=== PATIENT | female | born 2000 | race Caucasian/White ===

== ENCOUNTER 2021-01-30 19:27 | Emergency (ER) | payer BC ==
--- NOTE | 2021-01-30 20:38 | EDM.PDOC ---
ED HPI GENERAL MEDICAL PROBLEM - General Chief Complaint: Abdominal Pain Stated Complaint: UPPER ABDOMEN AND L SIDE CHEST Time Seen by Provider: 01/30/21 19:51 Source of Information: Reports: Patient History Limitations: Reports: No Limitations - History of Present Illness INITIAL COMMENTS - FREE TEXT/NARRATIVE: 20-year-old female presents the emergency department today with complaints of upper abdominal tightness. She states that about 130 this afternoon she ate a taco in a bag and a couple of funnel cakes. She states that the funnel cakes were pretty greasy. She states about an hour later she developed pressure in her epigastric area and up into her throat. She states that she does have newly diagnosed anxiety and did try to get herself to relax. She took a shower. She went to drive around. She states that eventually the pressure in her chest resolved and now she feels as though she is got a belt wrapped around her upper abdomen area. She states she is otherwise healthy. She denies any fever, chills, nausea, vomiting or diarrhea associated with the abdominal/chest pressure. Upper Abdomen Pain Score (Numeric/FACES): 6 - Related Data Allergies Allergy/AdvReac Type Severity Reaction Status Date / Time No Known Allergies Allergy Verified 01/30/21 19:56 Home Meds: Home Meds Escitalopram Oxalate [Lexapro] 10 mg PO DAILY 01/30/21 [History] Loratadine [Claritin] 10 mg PO DAILY 01/30/21 [History] Past Medical History Other Cardiovascular History: occasional PVC'S Respiratory History: Reports: Other (See Below) Other Respiratory History: seasonal allergies Psychiatric History: Reports: Depression - Past Surgical History HEENT Surgical History: Reports: Oral Surgery Social & Family History - Tobacco Use Tobacco Use Status *Q: Never Tobacco User - Caffeine Use Caffeine Use: Reports: Coffee - Recreational Drug Use Recreational Drug Use: No ED ROS GENERAL - Review of Systems Review Of Systems: Comprehensive ROS is negative, except as noted in HPI. ED EXAM, GI/ABD - Physical Exam Exam: See Below Exam Limited By: No Limitations General Appearance: Alert, WD/WN, No Apparent Distress Ears: Normal External Exam, Hearing Grossly Normal Nose: Normal Inspection Throat/Mouth: Normal Inspection, Normal Lips, Normal Voice, No Airway Compromise Head: Atraumatic Neck: Normal Inspection, Supple Respiratory/Chest: No Respiratory Distress, Lungs Clear, Normal Breath Sounds, No Accessory Muscle Use, Chest Non-Tender Cardiovascular: Normal Peripheral Pulses, Regular Rate, Rhythm, No Edema, No Murmur GI/Abdominal Exam: Normal Bowel Sounds, Soft, Non-Tender, No Distention (Female) Exam: Deferred Rectal (Female) Exam: Deferred Back Exam: Normal Inspection Extremities: Normal Inspection Neurological: Alert, Oriented, Normal Cognition Psychiatric: Normal Affect Skin Exam: Warm, Dry, Intact, Normal Color, No Rash Lymphatic: No Adenopathy Course - Vital Signs Text/Narrative:: Dated above, patient presents with sudden onset upper abdominal pressure as well as epigastric pressure radiating up into her throat after eating a taco in a bag and funnel cakes today. Also has a history of newly diagnosed anxiety. Upon exam, the patient is awake and alert and in no distress. She denies abdominal pain with palpation however when palpating on the epigastric area of the upper abdomen she states she does feel a pressure there. I have ordered labs to include a CBC, CMP, magnesium level, C-reactive protein, lipase and a GGT. We will also obtain right upper quadrant abdominal ultrasound to rule out gallbladder issues. Last Recorded V/S: Last Vital Signs Temp 98.9 F 01/30/21 19:56 Pulse 72 01/30/21 19:56 Resp 20 01/30/21 19:56 BP 104/56 L 01/30/21 19:56 Pulse Ox 100 01/30/21 19:56 - Orders/Labs/Meds Orders: Active Orders 24 hr Category Date Time Status Abdomen Ltd [US] Stat Exams 01/30/21 20:26 Taken Labs: Laboratory Tests 01/30/21 01/30/21 01/30/21 Range/Units 20:35 20:35 20:35 WBC 4.76 (3.98-10.04) K/mm3 RBC 4.42 (3.98-5.22) M/mm3 Hgb 13.2 (11.2-15.7) gm/dl Hct 39.7 (34.1-44.9) % MCV 89.8 (79.4-94.8) fl MCH 29.9 (25.6-32.2) pg MCHC 33.2 (32.2-35.5) g/dl RDW Std Deviation 40.8 (36.4-46.3) fL Plt Count 245 (182-369) K/mm3 MPV 11.0 (9.4-12.3) fl Neut % (Auto) 51.3 (34.0-71.1) % Lymph % (Auto) 36.1 (19.3-51.7) % [place] % (Auto) 9.0 (4.7-12.5) % Eos % (Auto) 3.2 (0.7-5.8) Baso % (Auto) 0.4 (0.1-1.2) % Neut # (Auto) 2.44 (1.56-6.13) K/mm3 Lymph # (Auto) 1.72 (1.18-3.74) K/mm3 [place] # (Auto) 0.43 H (0.24-0.36) K/mm3 Eos # (Auto) 0.15 (0.04-0.36) K/mm3 Baso # (Auto) 0.02 (0.01-0.08) K/mm3 Sodium 140 (136-145) mEq/L Potassium 3.5 (3.5-5.1) mEq/L Chloride 107 (98-107) mEq/L Carbon Dioxide 23 (21-32) mEq/L Anion Gap 13.5 (5-15) BUN 8 (7-18) mg/dL Creatinine 0.8 (0.55-1.02) mg/dL Est Cr Clr Drug Dosing 100.94 mL/min Estimated GFR (MDRD) > 60 (>60) mL/min BUN/Creatinine Ratio 10.0 L (14-18) Glucose 82 (70-99) mg/dL Calcium 8.8 (8.5-10.1) mg/dL Magnesium 1.9 (1.8-2.4) mg/dL Total Bilirubin 0.4 (0.2-1.0) mg/dL GGT 13 (5-55) U/L AST 12 L (15-37) U/L ALT 14 (14-59) U/L Alkaline Phosphatase 46 (46-116) U/L C-Reactive Protein <0.2 (<1.0) mg/dL Total Protein 6.8 (6.4-8.2) g/dl Albumin 3.8 (3.4-5.0) g/dl Globulin 3.0 gm/dL Albumin/Globulin Ratio 1.3 (1-2) Lipase 106 (73-393) U/L TSH 3rd Generation 1.453 (0.516-4.13) uIU/mL - Re-Assessments/Exams Free Text/Narrative Re-Assessment/Exam: 01/30/21 21:16 Hematology is unremarkable, chemistry reveals a sodium of 140, potassium 3.5, anion gap 13.5, BUN 8, creatinine 0.8, magnesium 1.9, GGT 13, AST 12, ALT 14, C- reactive protein less than 0.2, lipase 106, TSH 1.453 01/30/21 22:23 V rad radiologist impression ultrasound of the abdomen: 1. No acute findings. Suspect that the patient's symptoms are likely due to reflux disease. She will be discharged home with recommendations that she try taking Tums or Maalox when she developed symptoms of epigastric tenderness and fullness into her throat. She will then need to follow-up with her primary care provider. Departure - Departure Time of Disposition: 22:28 Disposition: Home, Self-Care 01 Condition: Good Clinical Impression: GERD (gastroesophageal reflux disease) Qualifiers: Esophagitis presence: esophagitis presence not specified Qualified Code(s): K21.9 - Gastro-esophageal reflux disease without esophagitis - Discharge Information Instructions: Food Choices for Gastroesophageal Reflux Disease, Adult, Gastroesophageal Reflux Disease, Adult, [id number] Referrals: PCP,Not In Area [Primary Care Provider] - Forms: ED Department Discharge Additional Instructions: You were seen in the emergency department today with complaints of abdominal discomfort and chest pressure after eating Tequin a bag in front of cake this afternoon. Labs were completed which were essentially unremarkable. Ultrasound of the gallbladder was also unremarkable. Suspect the cause of your discomfort is due to gastroesophageal reflux disease. As discussed when symptoms occur, you may take Tums or Maalox as needed per label instructions. If you are needing to take this several times a week however you may need to follow-up with your primary care provider to have recommendations for a once a day medication. Also recommend not eating too late at night. Do not lay down after meals. Recommend that you stay upright or go for a walk after meals. Should your condition worsen or change, do not hesitate returning to the emergency department. Sepsis Event Note (ED) - Focused Exam Vital Signs: Vital Signs Temp Pulse Resp BP Pulse Ox 01/30/21 19:56 98.9 F 72 20 104/56 L 100 - My Orders Last 24 Hours: My Active Orders 01/30/21 20:26 Abdomen Ltd [US] Stat - Assessment/Plan Last 24 Hours: My Active Orders 01/30/21 20:26 Abdomen Ltd [US] Stat
--- NOTE | 2021-01-31 16:38 | US ---
Limited abdominal ultrasound: Multiple real-time images were obtained transabdominally. Comparison: No prior abdominal imaging is available. Bowel gas obscures the pancreas. Liver shows no focal parenchymal abnormality. Gallbladder contains no shadowing gallstones. No gallbladder wall thickening or biliary duct dilatation is seen. Inferior vena cava is not visualized. Main portal vein shows normal hepatopedal flow. Right kidney shows no hydronephrosis or mass. Right kidney has a length of 9.5 cm. Impression: 1. Nonvisualized pancreas. Nonvisualized inferior vena cava. 2. Other portions of the right upper quadrant abdominal ultrasound appear unremarkable. Diagnostic code #2 I agree with preliminary report from [facility], finalized on 01/30/21, 10:59 PM CDT, code 1
== END 2021-01-30 22:42 | disposition home or self-care (01) ==
LOC: JD.ED 19:27
DX: K21.9 Gastro-esophageal reflux disease without esophagitis (principal)
CPT/HCPCS: 36415; 76705; 76705-26; 80053; 82977; 83690; 83735; 84443; 85025; 86140; 99283; 99284-25

== ENCOUNTER 2022-01-28 14:55 | Emergency (ER) | payer BC ==
[2022-01-28 19:33] LABS: CORONAVIRUS COVID-19 NAA POSITIVE (NEGATIVE)
== END 2022-01-28 19:00 | disposition home or self-care (01) ==
LOC: JD.ED 14:55
DX: R07.89 Other chest pain (principal); F41.9 Anxiety disorder, unspecified; F32.A Depression, unspecified; Z20.822 Contact with and (suspected) exposure to COVID-19; Z79.899 Other long term (current) drug therapy
CPT/HCPCS: 0241U; 36415; 71045; 80053; 84484; 85025; 85379; 93005; 99285; 93010; 99284